=== PATIENT | male | born 1990 | race African-American/Black ===

== ENCOUNTER 2016-07-03 21:01 | Emergency (ER) | payer MEDICAID ==
[~2016-07-03] VITALS: Ht 182.9 cm; Wt 104.3 kg
[2016-07-03 21:13] VITALS: BP 135/91
[2016-07-03] MEDS ORDERED: BACITRACIN-POLYMYXIN B TOPICAL OINT UD TOP ONE ×2 (22:00→22:15)
[2016-07-03] MEDS ORDERED: IBUPROFEN 600 MG TAB PO ONE ×2 (22:04→22:15)
== END 2016-07-03 22:16 | disposition home or self-care (01) ==
LOC: ER 21:07
DX: S60.221A Contusion of right hand, initial encounter (principal); F17.210 Nicotine dependence, cigarettes, uncomplicated; W22.01XA Walked into wall, initial encounter; Y93.89 Activity, other specified; Y99.8 Other external cause status; Y92.89 Other specified places as the place of occurrence of the external cause
CPT/HCPCS: 73130

== ENCOUNTER 2022-12-08 09:16 | Inpatient (IN) | payer SELFPAY ==
[~2022-12-08] VITALS: Ht 182.9 cm; Wt 103.4 kg
[2022-12-08 09:40] LABS: Basophils # (auto) 0.1 10 ^3/uL (0-0.2); Basophils % (auto) 0.6 % (0.0-2.0); Eosinophils # (auto) 0 10 ^3/uL (0-0.8); Hematocrit 50.4 % (41.0-53.0); Hemoglobin 17.1 g/dL (13.5-17.5); Lymphocytes # (auto) 1.5 10 ^3/uL (0.4-5.4); Lymphocytes % (auto) 13.7 % (10.0-50.0); Mean Corpuscular Hemoglobin 29.8 pg (28.0-32.0); Mean Corpuscular Hgb Conc. 33.9 g/dL (32.0-36.0); Mean Corpuscular Volume 87.9 fL (80.0-100.0); Monocytes # (auto) 0.4 10 ^3/uL (0-1.3); Monocytes % (auto) 3.7 % (0.0-12.0); Neutrophils # (auto) 9.1 10 ^3/uL (1.6-8.6); Nucleated Red Blood Cells % 0.1 %; Red Blood Cells 5.73 10^6/uL (4.5-5.90); Red Cell Distribution Width 14.9 % (11.8-14.3); White Blood Cell 11.1 10^3/uL (4.4-10.8)
[2022-12-08 09:59] VITALS: PULSE 73; RESP 20
[2022-12-08 10:02] LABS: Albumin 4.1 g/dL (3.4-5.0); Calcium 9.1 mg/dL (8.5-10.1); Potassium 3.9 mmol/L (3.5-5.1); Urine Bacteria NONE SEEN /hpf (None Seen); Urine Blood Negative /uL (Negative); Urine Mucus FEW (None Seen); Urine Specific Gravity 1.027 (1.001-1.035); Urine WBC 2 /hpf (0 - 3)
[2022-12-08 10:06] LABS: BUN/Creatinine Ratio 11.2 (10.0-20.0); Bilirubin, Total 0.4 mg/dL (0.2-1.0); Total Protein 7.9 g/dL (6.4-8.2)
[2022-12-08] MEDS ORDERED: HEPARIN SODIUM (PORCINE) 5000 UNITS/ML 1ML VIAL IV ONE (10:30)
[2022-12-08] MEDS ORDERED: IOHEXOL 350 MG/ML 100ML IJ ONE (11:04)
[2022-12-08] MEDS ORDERED: MORPHINE SULFATE INJ 2 MG/ml SYRG IV ONE (11:30)
[2022-12-08] MEDS ORDERED: ONDANSETRON HCL 4 MG/2 ML VIAL IV ONE (11:30)
[2022-12-08] MEDS ORDERED: LORazepam 2MG/ML-1ML VIAL IV ONE (11:30)
[2022-12-08 12:03] LABS: Amphetamine Screen, Urine NEGATIVE (NEGATIVE); Barbiturate Scree,Urine NEGATIVE (NEGATIVE); Benzodiazephine Screen, Urine NEGATIVE (NEGATIVE); Cannabinoid Screen, Urine POSITIVE (NEGATIVE); Cocaine Screen, Urine POSITIVE (NEGATIVE)
[2022-12-08 12:11] LABS: Opiate Scree,Urine NEGATIVE (NEGATIVE); Phencyclidine Screen, Urine NEGATIVE (NEGATIVE)
[2022-12-08] MEDS ORDERED: DOCUSATE SOD 100 MG CAP PO PRN (13:45)
[2022-12-08] MEDS ORDERED: NITROGLYCERIN 0.4 MG SL TAB SL PRN (13:45)
[2022-12-08] MEDS ORDERED: HYDROcodone-ACET 5/325MG TAB PO PRN (13:45)
[2022-12-08] MEDS ORDERED: FOLIC ACID 1 MG, MULTIPLE VITAMIN 10 ML, MAGNESIUM SULF SDV 50% 8 MEQ, THIAMINE INJ 100... INJ ONE ×5 (13:45)
[2022-12-08] MEDS ORDERED: MORPHINE SULFATE INJ 2 MG/ml SYRG IV PRN (13:45)
[2022-12-08] MEDS ORDERED: ACETAMINOPHEN 325 MG TAB PO PRN (13:45)
[2022-12-08] MEDS ORDERED: CLOPIDOGREL BISULFATE 75 MG TAB PO ONE (14:30)
[2022-12-08] MEDS: ATORVASTATIN 20 MG TAB PO SCH ×2 (16:04→21:35)
[2022-12-08 19:30] VITALS: PULSE 66; RESP 21; O2SAT 95
[2022-12-09] VITALS (7 sets, daily range): BP systolic 109–123; BP diastolic 73–82; PULSE 55–113; RESP 15–19; TEMP 97.8–98; O2SAT 98–100
[2022-12-09 06:09] LABS: Basophils # (auto) 0 10 ^3/uL (0-0.2); Basophils % (auto) 0.4 % (0.0-2.0); Eosinophils # (auto) 0 10 ^3/uL (0-0.8); Eosinophils % (auto) 0.2 % (0.0-7.0); Hematocrit 52.8 % (41.0-53.0); Hemoglobin 18.3 g/dL (13.5-17.5); Lymphocytes # (auto) 1.5 10 ^3/uL (0.4-5.4); Lymphocytes % (auto) 14.4 % (10.0-50.0); Mean Corpuscular Hemoglobin 30.2 pg (28.0-32.0); Mean Corpuscular Hgb Conc. 34.6 g/dL (32.0-36.0); Mean Corpuscular Volume 87.4 fL (80.0-100.0); Monocytes # (auto) 1.3 10 ^3/uL (0-1.3); Monocytes % (auto) 12.3 % (0.0-12.0); Neutrophils # (auto) 7.6 10 ^3/uL (1.6-8.6); Neutrophils % (auto) 72.7 % (37.0-80.0); Nucleated Red Blood Cells % 0.2 %; Red Blood Cells 6.05 10^6/uL (4.5-5.90); White Blood Cell 10.4 10^3/uL (4.4-10.8)
[2022-12-09 06:25] LABS: BUN/Creatinine Ratio 7.8 (10.0-20.0); Potassium 3.4 mmol/L (3.5-5.1)
[2022-12-09 09:09] LABS: INR 1.05 (0.9-1.15)
[2022-12-09] MEDS ORDERED: HEPARIN SODIUM (PORCINE) 5000 UNITS/ML 1ML VIAL IV ONE (09:45)
[2022-12-09] MEDS ORDERED: HEPARIN DRIP/D5W 100UNITS/ML 250 ML IV SCH ×2 (09:45→19:15)
[2022-12-09 10:18] LABS: Magnesium 2.9 mg/dL (1.6-2.6)
[2022-12-09] MEDS ORDERED: ADENOSINE 82 MG in GIVE UN-DILUTED 0 ML IV STA (10:31)
[2022-12-09] MEDS: ASPirin 81 mg TAB PO SCH (12:14)
[2022-12-09 18:52] LABS: INR 1.03 (0.9-1.15); Partial Thromboplastin Time 45.6 SEC (24.5-34.5)
[2022-12-09] MEDS: ATORVASTATIN 20 MG TAB PO SCH (21:28)
[2022-12-09] MEDS: METOPROLOL TARTRATE 25 MG TAB PO SCH (21:30)
[2022-12-10] VITALS (14 sets, daily range): BP systolic 100–126; BP diastolic 55–86; PULSE 50–81; RESP 12–20; TEMP 97.6–98.5; O2SAT 97–100
[2022-12-10 02:26] LABS: INR 1.04 (0.9-1.15); Partial Thromboplastin Time 59.5 SEC (24.5-34.5)
[2022-12-10 06:07] LABS: Eosinophils # (auto) 0 10 ^3/uL (0-0.8); Monocytes # (auto) 1.2 10 ^3/uL (0-1.3); Nucleated Red Blood Cells % 0.2 %
[2022-12-10 06:09] LABS: Anion Gap 9 (5-15); BUN/Creatinine Ratio 16.3 (10.0-20.0); Blood Urea Nitrogen 16 mg/dL (7-18); Calcium 9.1 mg/dL (8.5-10.1); Carbon Dioxide 23 mmol/L (21-32); Chloride 106 mmol/L (98-107); GFR African American 115 mL/min; GFR Non-African American 95 mL/min; Glucose 100 mg/dL (74-106); Potassium 3.7 mmol/L (3.5-5.1); Sodium 138 mmol/L (136-145)
[2022-12-10 06:10] LABS: Basophils # (auto) 0 10 ^3/uL (0-0.2); Basophils % (auto) 0.4 % (0.0-2.0); Eosinophils % (auto) 0.5 % (0.0-7.0); Hematocrit 51.9 % (41.0-53.0); Hemoglobin 17.6 g/dL (13.5-17.5); Lymphocytes # (auto) 2.8 10 ^3/uL (0.4-5.4); Lymphocytes % (auto) 28.4 % (10.0-50.0); Mean Corpuscular Hemoglobin 30.1 pg (28.0-32.0); Mean Corpuscular Hgb Conc. 33.9 g/dL (32.0-36.0); Mean Corpuscular Volume 88.7 fL (80.0-100.0); Monocytes % (auto) 11.8 % (0.0-12.0); Neutrophils # (auto) 5.8 10 ^3/uL (1.6-8.6); Neutrophils % (auto) 58.9 % (37.0-80.0); Red Blood Cells 5.86 10^6/uL (4.5-5.90); Red Cell Distribution Width 15.1 % (11.8-14.3); White Blood Cell 9.8 10^3/uL (4.4-10.8)
[2022-12-10 08:02] LABS: INR 1.06 (0.9-1.15); Partial Thromboplastin Time 67.8 SEC (24.5-34.5)
[2022-12-10] MEDS ORDERED: HEPARIN DRIP/D5W 100UNITS/ML 250 ML IV SCH (09:00)
[2022-12-10] MEDS: METOPROLOL TARTRATE 25 MG TAB PO SCH ×2 (10:00→21:55)
[2022-12-10] MEDS: ASPirin 81 mg TAB PO SCH (11:47)
[2022-12-10 14:52] LABS: INR 1.05 (0.9-1.15); Partial Thromboplastin Time 68.8 SEC (24.5-34.5)
[2022-12-10] MEDS ORDERED: MIDAZOLAM HCL 2MG/2ML 2ml VIAL (1mg/ml) ONE ×2 (18:00→18:32)
[2022-12-10] MEDS ORDERED: fentaNYL CITRATE 100 MCG/2 ML VL ONE (18:00)
[2022-12-10] MEDS ORDERED: SODIUM CHL 0.9% 50 ML ONE (18:01)
[2022-12-10] MEDS ORDERED: VERAPAMIL 2.5MG/ML INJ 2ML VIAL IV ONE (18:02)
[2022-12-10] MEDS ORDERED: ANGIOMAX 250 MG VIAL IV ONE (18:02)
[2022-12-10] MEDS ORDERED: HEPARIN SODIUM (PORCINE) 5000 UNITS/ML 1ML VIAL ONE (18:02)
[2022-12-10] MEDS ORDERED: IODIXANOL 320MG/ML 100ML BTL IV ONE (18:17)
[2022-12-10] MEDS ORDERED: EPTIFIBATIDE INJ (2MG/ML) 10ML VIAL IV ONE (19:01)
[2022-12-10] MEDS ORDERED: ATROPINE SULF 1 MG/10ml SYR ONE (19:07)
[2022-12-10] MEDS ORDERED: EPINEPHrine HCL 1 MG/10 ML SYRG ONE (19:07)
[2022-12-10] MEDS ORDERED: ASPirin 81 mg TAB ONE (19:25)
[2022-12-10] MEDS ORDERED: CLOPIDOGREL 300 MG TAB ONE (19:25)
[2022-12-10] MEDS: ATORVASTATIN 20 MG TAB PO SCH (21:55)
[2022-12-11 00:55] VITALS: BP 106/72; PULSE 55; RESP 16; O2SAT 99
[2022-12-11 05:00] VITALS: BP 106/62; PULSE 57; RESP 18; TEMP 98.3; O2SAT 97
[2022-12-11 06:01] LABS: Calcium 8.8 mg/dL (8.5-10.1); Magnesium 2.6 mg/dL (1.6-2.6); Potassium 4.1 mmol/L (3.5-5.1)
[2022-12-11 06:04] LABS: BUN/Creatinine Ratio 11.3 (10.0-20.0)
[2022-12-11 06:12] LABS: Basophils # (auto) 0 10 ^3/uL (0-0.2); Basophils % (auto) 0.4 % (0.0-2.0); Eosinophils # (auto) 0 10 ^3/uL (0-0.8); Eosinophils % (auto) 0.3 % (0.0-7.0); Hematocrit 49.7 % (41.0-53.0); Hemoglobin 16.8 g/dL (13.5-17.5); Lymphocytes # (auto) 1.6 10 ^3/uL (0.4-5.4); Mean Corpuscular Hemoglobin 29.9 pg (28.0-32.0); Mean Corpuscular Hgb Conc. 33.7 g/dL (32.0-36.0); Mean Corpuscular Volume 88.8 fL (80.0-100.0); Monocytes # (auto) 0.8 10 ^3/uL (0-1.3); Monocytes % (auto) 10.7 % (0.0-12.0); Neutrophils # (auto) 5.2 10 ^3/uL (1.6-8.6); Neutrophils % (auto) 67.6 % (37.0-80.0); Nucleated Red Blood Cells % 0.2 %; Red Cell Distribution Width 14.6 % (11.8-14.3); White Blood Cell 7.8 10^3/uL (4.4-10.8)
[2022-12-11 08:00] VITALS: PULSE 55
[2022-12-11 09:00] VITALS: BP 113/69; PULSE 99; RESP 19; TEMP 98.1; O2SAT 95
[2022-12-11] MEDS ORDERED: CLOP75TA70 PO (09:16)
[2022-12-11] MEDS ORDERED: ATOR20TA50 PO (09:16)
[2022-12-11] MEDS ORDERED: ASPI-543 PO (09:16)
[2022-12-11] MEDS ORDERED: MET25T PO (09:17)
[2022-12-11] MEDS ORDERED: ASPirin-EC 81 mg tab PO SCH (10:00)
[2022-12-11] MEDS ORDERED: CLOPIDOGREL BISULFATE 75 MG TAB PO SCH (10:00)
[2022-12-11 11:24] VITALS: PULSE 58; TEMP 36.7
== END 2022-12-11 12:35 | disposition home or self-care (01) | DRG 271 ==
LOC: ER 09:16 → TELE 13:35 → TELE-EAST 12-09 08:44
PROVIDERS: ADMIT Internal Medicine Pulmonary Disease; ATTEND Student in an Organized Health Care Education/Training Program
PROC: 027034Z Dilation of Coronary Artery, One Artery with Drug-eluting Intraluminal Device, Percutaneous Approach (ICD-10-PCS; principal; 2022-12-10)
PROC: X2CY3T7 Extirpation of Matter from Great Vessel using Computer-aided Mechanical Aspiration, Percutaneous Approach, New Technology Group 7 (ICD-10-PCS; 2022-12-10)
PROC: 4A023N7 Measurement of Cardiac Sampling and Pressure, Left Heart, Percutaneous Approach (ICD-10-PCS; 2022-12-10)
PROC: B211YZZ Fluoroscopy of Multiple Coronary Arteries using Other Contrast (ICD-10-PCS; 2022-12-10)
PROC: B215YZZ Fluoroscopy of Left Heart using Other Contrast (ICD-10-PCS; 2022-12-10)
PROC: B310YZZ Fluoroscopy of Thoracic Aorta using Other Contrast (ICD-10-PCS; 2022-12-10)
PROC: B240ZZ3 Ultrasonography of Single Coronary Artery, Intravascular (ICD-10-PCS; 2022-12-10)
DX: I21.4 Non-ST elevation (NSTEMI) myocardial infarction (principal); I50.30 Unspecified diastolic (congestive) heart failure; J98.11 Atelectasis; F17.210 Nicotine dependence, cigarettes, uncomplicated; F14.90 Cocaine use, unspecified, uncomplicated; G47.30 Sleep apnea, unspecified; F10.90 Alcohol use, unspecified, uncomplicated; F19.10 Other psychoactive substance abuse, uncomplicated; E78.5 Hyperlipidemia, unspecified; I11.0 Hypertensive heart disease with heart failure; Z82.49 Family history of ischemic heart disease and other diseases of the circulatory system; Z83.3 Family history of diabetes mellitus; Z86.718 Personal history of other venous thrombosis and embolism; Z86.711 Personal history of pulmonary embolism
CPT/HCPCS: 36415; 71045; 71275; 78452; 80048; 80053; 80061; 80307; 81001; 83036; 83735; 83880; 84443; 84484; 85025; 85610; 85730; 86850; 86900; 86901; 92941; 92973; 92978; 93005; 93306; 93458; 93567; 93970; 99152; 99153; 99291; C1874; G0378; J0153; J2250; J2405; Q9967